=== PATIENT | female | born 1950 | race Caucasian/White ===

== ENCOUNTER 2021-02-05 21:25 | Emergency (ER) | payer MEDICARE, OTHER ==
[2021-02-05 22:41] LABS: BILIRUBIN NEGATIVE (NEGATIVE); BLOOD NEGATIVE Ery/uL (NEGATIVE); CLARITY CLEAR (CLEAR); COLOR YELLOW (YELLOW); GLUCOSE (U) TRACE mg/dL (NORMAL); LEUKOCYTES 1+ Leu/uL (NEGATIVE); NITRITE NEGATIVE (NEGATIVE); PROTEIN NEGATIVE (NEGATIVE); UROBILINOGEN 0.2 mg/dL (0.2-1.0)
[2021-02-05 22:47] LABS: BACTERIA TRACE
== END 2021-02-06 00:15 | disposition home or self-care (01) ==
LOC: FER 21:25
PROVIDERS: Nurse Practitioner Family
DX: S09.90XA Unspecified injury of head, initial encounter (principal); I10 Essential (primary) hypertension; Z79.84 Long term (current) use of oral hypoglycemic drugs; Z79.899 Other long term (current) drug therapy; W01.10XA Fall on same level from slipping, tripping and stumbling with subsequent striking against unspecified object, initial encounter; Y92.009 Unspecified place in unspecified non-institutional (private) residence as the place of occurrence of the external cause
CPT/HCPCS: 70450; 72125; 81001